=== PATIENT | female | born 1985 | race Caucasian/White ===

== ENCOUNTER 2018-06-23 11:35 | Emergency (ER) | payer OTHER, SELFPAY ==
[2018-06-23] MEDS ORDERED: MAGNE/ALUM HYDROXD 30 ML UCUP ONE (14:40)
[2018-06-23] MEDS ORDERED: MORPHINE 4 MG/ML SYR ONE (14:40)
[2018-06-23] MEDS ORDERED: ONDANSETRON 4 MG/2 ML VIAL ONE (14:40)
[2018-06-23] MEDS ORDERED: LIDOCAINE VISCOUS 2% SOLN 15 ML UDC ONE (14:40)
[2018-06-23] MEDS ORDERED: NA CHLORIDE 0.9% 1,000 ML ONE (14:41)
[2018-06-23] MEDS ORDERED: FAMOTIDINE 20 MG/2 ML VIAL IV ONE (14:41)
[2018-06-23 15:09] LABS: Absolute Monocytes 0.3 K/uL (0.1-1.3); Absolute Neutrophil 2.3 K/uL (1.8-8.0); Basophils % 0.3 % (0-1.3); Eosinophils % 1.9 % (0-4.4); Hematocrit 47.7 % (36.0-45.0); Lymphocytes % 42.2 % (15.3-44.8); MPV 8.8 fL (7.6-11.3); Monocytes % 7.1 % (3.3-12.3); RBC Red Blood Cell Count 5.43 M/uL (3.86-4.86)
[2018-06-23 15:15] LABS: Urine Blood NEGATIVE (NEG); Urine Glucose NEGATIVE (NEG); Urine Protein NEGATIVE (NEG)
[2018-06-23 15:21] LABS: ALT/SGPT 54 U/L (12-78); AST/SGOT 32 U/L (15-37); Alkaline Phosphatase 93 U/L (45-117); BUN Blood Urea Nitrogen 8 mg/dL (7-18); Bicarbonate 25 mmol/L (21-32); Bilirubin Direct < 0.1 mg/dL (0-0.2); Bilirubin Total 0.4 mg/dL (0.2-1.0); Glucose Level 82 mg/dL (74-106); Lipase 169 U/L (73-393); Potassium 4.2 mmol/L (3.5-5.1); Protein, Total 7.6 g/dL (6.4-8.2); Sodium Level 139 mmol/L (136-145)
--- NOTE | 2018-06-23 16:10 | RAD REPORT ---
EXAM DESCRIPTION: CTAbdomen Pelvis W Contrast - 06/23/2018 4:01 pm CLINICAL HISTORY: Abdominal pain. ABD PAIN COMPARISON: CT ABD PELVIS W CONTRAST dated 10/06/2013 TECHNIQUE: Biphasic CT imaging of the abdomen and pelvis was performed with 100 ml non-ionic IV cont rast. All CT scans are performed using dose optimization technique as appropriate and may include automated exposure control or mA/KV adjustment according to patient size. FINDINGS: The lung bases are clear.Cholecystectomy clips. The liver, spleen, pancreas, adrenal glands and kidneys are within normal limits. No bowel obstruction, free air, free fluid or abscess. The appendix is normal. No evidence of signi ficant lymphadenopathy. No suspicious bony findings. IUD is present in the uterus with small follicles in both ovaries. IMPRESSION: No acute intra-abdominal or pelvic finding.
--- NOTE | 2018-06-23 16:33 | ER ---
Nurse's Notes [facility] Name: Alyssa Bull Age: 33 yrs Sex: Female : 1985 Arrival Date: 06/23/2018 Time: 11:37 Bed 18 Private MD: None, None Diagnosis: Epigastric pain Presentation: 06/23 11:41 Presenting complaint: Patient states: abd burning x 3 weeks. Dark stools x 4 days. ss Transition of care: patient was not received from another setting of care. Onset of symptoms was June 01, 2018. Risk Assessment: Do you want to hurt yourself or someone else? Patient reports no desire to harm self or others. Initial Sepsis Screen: Does the patient meet any 2 criteria? No. Patient's initial sepsis screen is negative. Does the patient have a suspected source of infection? No. Patient's initial sepsis screen is negative. Care prior to arrival: None. 11:41 Method Of Arrival: Ambulatory ss 11:41 Acuity: JOE 3 ss Historical: - Allergies: 11:44 No Known Allergies; ss - Home Meds: 11:44 Dicyclomine Oral [Active]; meloxicam 15 mg oral tab 1 tab once daily [Active]; Nexium ss 20 mg Oral cpDR 1 cap once daily [Active]; escitalopram oxalate 20 mg oral tab 1 tab once daily [Active]; Xyzal oral oral [Active]; - PMHx: 11:44 GERD; Anxiety; ss - PSHx: 11:44 Cholecystectomy; Tubal ligation; ss - Immunization history:: Adult Immunizations up to date. - Social history:: Smoking status: Patient uses tobacco products, smokes one-half pack cigarettes per day, Patient uses alcohol, but reports only rare drinking. Patient/guardian denies using alcohol, street drugs, The patient lives with family. - Ebola Screening: : Patient denies exposure to infectious person Patient denies travel to an Ebola-affected area in the 21 days before illness onset. Vital Signs: 11:44 BP 124 / 93; Pulse 95; Resp 15; Temp 98.3(TE); Pulse Ox 97% on R/A; Height 5 ft. 3 in. ss (160.02 cm); Pain 8/10; ED Course: 11:37 Patient arrived in ED. sb2 11:37 None, None is Private Physician. sb2 11:42 Triage completed. ss 11:44 Arm band placed on right wrist. ss 13:19 Asif Sanchez, RN is Primary Nurse. sg 13:55 Vish Wood MD is Attending Physician. ma2 14:44 Initial lab(s) drawn, by me, sent to lab. Inserted saline lock: 22 gauge in left dh3 forearm, using aseptic technique. Blood collected. 15:40 Radiology exam delayed due to test not completed at this time. 16:01 CT completed. Patient tolerated procedure well. Patient moved back from CT. mo 16:05 CT Abd/Pelvis - W/Contrast In Process Unspecified. EDMS Administered Medications: 14:54 Drug: Pepcid 20 mg Route: IVP; Site: left forearm; sg 15:30 Follow up: Response: No adverse reaction sg 14:54 Drug: GI Cocktail without - (Maalox Suspension 30 ml, Lidocaine Liquid 2 % 15 sg ml) Route: PO; 15:30 Follow up: Response: No adverse reaction sg 14:54 Drug: morphine 4 mg Route: IVP; Site: left forearm; sg 15:25 Follow up: Response: No adverse reaction; Pain is decreased sg 14:54 Drug: Zofran 4 mg Route: IVP; Site: left forearm; sg 15:30 Follow up: Response: No adverse reaction; Nausea is decreased sg 14:55 Drug: NS 0.9% 1000 ml Route: IV; Rate: 1 bolus; Site: left forearm; sg Outcome: 16:32 Discharge ordered by . ma2 16:49 Patient left the ED. ss Signatures: Dispatcher [employer] EDMS Asif Sanchez, Haley Shrestha RN, Shelby, RN RN Sean Alanis [facility] Vish Wood MD MD ma2 [place], Sheri [facility]
--- NOTE | 2018-06-23 16:34 | EDPHYS ---
Physician Documentation [facility] Name: Alyssa Bull Age: 33 yrs Sex: Female : 1985 Arrival Date: 06/23/2018 Time: 11:37 Bed 18 Private MD: None, None ED Physician Vish Wood HPI: 06/23 14:48 This 33 yrs old Female presents to ER via Ambulatory with complaints of ma2 Abdominal Pain. 14:48 The patient presents with abdominal pain. Onset: The symptoms/episode began/occurred ma2 gradually, 1 day(s) ago. Associated signs and symptoms: Pertinent positives: nausea and vomiting, Pertinent negatives: chest pain, dysuria, fever, shortness of breath, vomiting. The symptoms are described as burning. Severity of pain: At its worst the pain was moderate in the emergency department the pain is unchanged. The patient has experienced similar episodes in the past. Historical: - Allergies: 11:44 No Known Allergies; ss - Home Meds: 11:44 Dicyclomine Oral [Active]; meloxicam 15 mg oral tab 1 tab once daily [Active]; Nexium ss 20 mg Oral cpDR 1 cap once daily [Active]; escitalopram oxalate 20 mg oral tab 1 tab once daily [Active]; Xyzal oral oral [Active]; - PMHx: 11:44 GERD; Anxiety; ss - PSHx: 11:44 Cholecystectomy; Tubal ligation; ss - Immunization history:: Adult Immunizations up to date. - Social history:: Smoking status: Patient uses tobacco products, smokes one-half pack cigarettes per day, Patient uses alcohol, but reports only rare drinking. Patient/guardian denies using alcohol, street drugs, The patient lives with family. - Ebola Screening: : Patient denies exposure to infectious person Patient denies travel to an Ebola-affected area in the 21 days before illness onset. ROS: 14:48 Constitutional: Negative for fever, chills, and weight loss, Cardiovascular: Negative ma2 for chest pain, palpitations, and edema, Respiratory: Negative for shortness of breath, cough, wheezing, and pleuritic chest pain. 14:48 Abdomen/GI: Positive for abdominal pain, Negative for diarrhea, abdominal distension, rectal pain, flatulence. 14:48 All other systems are negative. Exam: 14:48 Constitutional: This is a well developed, well nourished patient who is awake, alert, ma2 and in no acute distress. Chest/axilla: Normal chest wall appearance and motion. Nontender with no deformity. No lesions are appreciated. Cardiovascular: Regular rate and rhythm with a normal S1 and S2. No gallops, murmurs, or rubs. Normal PMI, no JVD. No pulse deficits. Respiratory: Lungs have equal breath sounds bilaterally, clear to auscultation and percussion. No rales, rhonchi or wheezes noted. No increased work of breathing, no retractions or nasal flaring. Abdomen/GI: Soft, non-tender, with normal bowel sounds. No distension or tympany. No guarding or rebound. No evidence of tenderness throughout. MS/ Extremity: Pulses equal, no cyanosis. Neurovascular intact. Full, normal range of motion. Neuro: Awake and alert, GCS 15, oriented to person, place, time, and situation. Cranial nerves II-XII grossly intact. Motor strength 5/5 in all extremities. Sensory grossly intact. Cerebellar exam normal. Normal gait. Vital Signs: 11:44 BP 124 / 93; Pulse 95; Resp 15; Temp 98.3(TE); Pulse Ox 97% on R/A; Height 5 ft. 3 in. ss (160.02 cm); Pain 8/10; MDM: 13:55 Patient medically screened. [facility] 14:48 Differential diagnosis: appendicitis, Cholelithiasis, diverticulitis, gastritis, ma2 gastroesophageal reflux disease. 16:31 Data reviewed: vital signs, nurses notes. Counseling: I had a detailed discussion with [facility] the patient and/or guardian regarding: the historical points, exam findings, and any diagnostic results supporting the discharge/admit diagnosis, the presence of at least one elevated blood pressure reading (>120/80) during this emergency department visit. Response to treatment: the patient's symptoms have resolved after treatment. 06/23 13:50 Order name: Urine Dipstick--Ancillary (enter results); Complete Time: 16:25 06/23 13:50 Order name: Urine --Ancillary (enter results); Complete Time: 16:25 bd 06/23 14:21 Order name: Basic Metabolic Panel; Complete Time: 16:[address] [facility] 06/23 14:21 Order name: CBC with Diff; Complete Time: 16:25 ma06/23 14:21 Order name: Creatinine for Radiology; Complete Time: 16:25 ma06/23 14:21 Order name: Hepatic Function; Complete Time: 16:06/23 14:21 Order name: Lipase; Complete Time: 16:25 06/23 14:21 Order name: CT Abd/Pelvis - W/Contrast; Complete Time: 16:25 ma06/23 14:21 Order name: Test, Serum; Complete Time: 16:06/23 14:21 Order name: IV Saline Lock; Complete Time: 14:06/23 14:21 Order name: Labs collected and sent; Complete Time: :06/23 14:21 Order name: Urine Dipstick-Ancillary (obtain specimen); Complete Time: 14: ma Administered Medications: 14:54 Drug: Pepcid 20 mg Route: IVP; Site: left forearm; sg 15:30 Follow up: Response: No adverse reaction sg 14:54 Drug: GI Cocktail without - (Maalox Suspension 30 ml, Lidocaine Liquid 2 % 15 sg ml) Route: PO; 15:30 Follow up: Response: No adverse reaction sg 14:54 Drug: morphine 4 mg Route: IVP; Site: left forearm; sg 15:25 Follow up: Response: No adverse reaction; Pain is decreased sg 14:54 Drug: Zofran 4 mg Route: IVP; Site: left forearm; sg 15:30 Follow up: Response: No adverse reaction; Nausea is decreased sg 14:55 Drug: NS 0.9% 1000 ml Route: IV; Rate: 1 bolus; Site: left forearm; sg Disposition: 06/23/18 16:32 Discharged to Home. Impression: Epigastric pain. - Condition is Stable. - Discharge Instructions: Abdominal Pain, Adult, [id number]. - Prescriptions for Zofran 4 mg Oral Tablet - take 1 tablet by ORAL route every 12 hours As needed; 20 tablet. omeprazole 40 mg Oral capsule,delayed release(DR/EC) - take 1 capsule by ORAL route once daily before a meal; 30 capsule. - Medication Reconciliation Form, Thank You Letter, Antibiotic Education, Prescription Opioid Use form. - Work release form (06/23/18 16:55). sg - Follow up: Private Physician; When: Tomorrow; Reason: Continuance of care. Signatures: Dispatcher [employer] Asif Marin RN RN sg Smirch, Shelby, RN RN ss Alzahri, Mohammad, MD MD ma2 Corrections: (The following items were deleted from the chart) 16:49 16:32 06/23/2018 16:32 Discharged to Home. Impression: Epigastric pain. Condition is ss Stable. Forms are Medication Reconciliation Form, Thank You Letter, Antibiotic Education, Prescription Opioid Use. Follow up: Private Physician; When: Tomorrow; Reason: Continuance of care. ma2
[2018-06-23 17:05] VITALS: BP 124/93; TEMP 98.3; O2SAT 97
== END 2018-06-23 16:49 | disposition home or self-care (01) ==
LOC: ER 11:35
DX: R10.13 Epigastric pain (principal); K21.9 Gastro-esophageal reflux disease without esophagitis; F41.9 Anxiety disorder, unspecified; F17.210 Nicotine dependence, cigarettes, uncomplicated
CPT/HCPCS: 36415; 74177; 80048; 80076; 81003; 81025; 83690; 84703; 85025; J2405; J7030; Q9967